=== PATIENT | female | born 1980 | race Caucasian/White ===

== ENCOUNTER 2018-08-18 09:01 | Day surgery (SDC) | payer BC ==
[2018-08-18] MEDS ORDERED: MIDAZOLAM 1 MG/ML 2 ML INJ ×4 (10:58)
[2018-08-18] MEDS ORDERED: FENTAnyl 50 MCG/ML VIAL (10:58)
== END 2018-08-18 16:25 | disposition home or self-care (01) ==
LOC: GIL 09:01
DX: R19.4 Change in bowel habit (principal); K64.4 Residual hemorrhoidal skin tags; K64.8 Other hemorrhoids; K63.89 Other specified diseases of intestine; K29.60 Other gastritis without bleeding
CPT/HCPCS: 43239; 84703; 88305; 88312